=== PATIENT | male | born 1995 | race Two or more races ===

== ENCOUNTER 2017-09-19 06:27 | Emergency (ER) | payer OTHER ==
[~2017-09-19] VITALS: Ht 177.8 cm; Wt 68.0 kg
[2017-09-19 06:30] VITALS: BP 146/102
--- NOTE | 2017-09-19 06:53 | NUR ---
DR. DIXON AT [facility] FOR EVAL.
[2017-09-19] MEDS ORDERED: OLANZAPINE 5 MG TABLET ONE (06:57)
[2017-09-19] MEDS ORDERED: OLANZAPINE 5 MG TABLET PO ONE (07:00)
== END 2017-09-19 07:02 | disposition home or self-care (01) ==
LOC: ER 06:30
DX: F31.9 Bipolar disorder, unspecified (principal); Z76.0 Encounter for issue of repeat prescription; F22 Delusional disorders; Z88.2 Allergy status to sulfonamides
CPT/HCPCS: A4606; Z7610

== ENCOUNTER 2018-08-19 09:33 | Emergency (ER) | payer OTHER ==
[~2018-08-19] VITALS: Ht 177.8 cm; Wt 77.6 kg
--- NOTE | 2018-08-19 09:48 | NUR ---
LUATIONPT BROUGHT IN BY PARAMEDICS FOR HALLUCINATIONS AND HEARING VOICES NOT SI STATES HE USES DRUGS AND WANTS DRUG TREATMENT. PT ABLE TO WALK PENDING MD ALLRED
--- NOTE | 2018-08-19 11:13 | NUR ---
PT EVALUATED BY OPHTHALMIC ASST OBTAINING TAP CARD WILL DISCHARGE AFTER
--- NOTE | 2018-08-19 11:42 | NUR ---
JEVON received a call from principal secretary Chitra requesting for SW eval for homelessness and drug abuse. Pt. is a 22 year old male who was brought in by rescue ambulance for auditory hallucinations. JEVON met with pt. bedside. Pt. is alert and oriented x 4. Pt. is soft spoken. Pt. takes a long pause before answering any questions. Pt. states he is homeless and has been homeless for a while. Pt. states he has been living on the streets. Pt. has no emergency contact. Pt. has a history of methamphetamine use and last used yesterday. Pt. denies alcohol and cigarette use. SW encouraged pt. to attend a drug rehabilitation program for his drug use. Pt. also has a psychiatric diagnosis of Schizophrenia. Pt. is currently denying having auditory and visual hallucinations. Pt. denies suicidal and homicidal ideations as well. Pt. receives food stamps but not GR. JEVON explained to pt. about the [place] [facility] [phone] and gave him the list along with [facility] Homeless Resource Directory. The following resources were provided to the pt: Mental Health clinics [facility] Homeless Program [address] [place], [place] [id number] Homeless mentally ill people may be seen at [facility] on a walk-in basis. [facility] [address] [facility], 2nd [place] [address] Main Number: Adult Full Service Partnership (AFSP): Contact [facility] [address] [place] [address] [place] [address] Operation Hours: MON - FRI 8:00 a.m. - 5:00 p.m. Walk In Hours: MON - FRI 8:00 a.m. - 5:00 p.m. Services by Age: Adults and Older Adults Healthcare Clinics for Homeless patients [facility] [address] [facility], [address] [place]. [place] Hours: M, T, Th, F 8:30AM-4:30PM Walk-ins allowed Provide medical screening and pharmacy [facility] [address] [facility] [address] [place] [address] Hours M-F 8AM-3:30PM Walk-ins allowed Provide medical screening and pharmacy [facility] [address] [place] [address] Hours 8AM-4:30PM Walk-ins allowed Provide medical screening and pharmacy Alcohol and Drug Treatment Programs [facility] Substance Abuse Self-helpline ([facility]) Contact number . Call the hotline and the concrete products machine operator will screen and link individual to an appropriate program. Must have Medi-ab or be Med-ab eligible. [facility] [address] [facility]. [place] [address] [facility] [address] [facility]. [place] [phone] [facility] Rehabilitation Program (Episcopalian based) [address] [facility]. [place] [phone] (Six months program and need to work for 8 hrs per day while in treatment) [facility] (No insurance required) [address] [place] [address] Homeless Patient Waiver Form was signed by the pt. and pt. was provided with a TAP card per his request. No other social service needs are requested at this time. SW is available, if needed. Dr. Dill and HONEY Mabry have been updated with pt's discharge plan.
--- NOTE | 2018-08-19 11:53 | NUR ---
PT DISCHARGED TO COMMUNITY WILL F/U WITH DRUG REHAB GIVEN HOMELESS RESOURCES ANF TAP CARD. ACI GIVEN WELL
[2018-08-19 12:03] VITALS: BP 127/76
== END 2018-08-19 12:04 | disposition home or self-care (01) ==
LOC: ER 09:35
DX: F20.9 Schizophrenia, unspecified (principal); F19.10 Other psychoactive substance abuse, uncomplicated; F22 Delusional disorders; Z88.2 Allergy status to sulfonamides
CPT/HCPCS: 99283; A4606

== ENCOUNTER 2019-06-07 20:09 | Emergency (ER) | payer MEDICAID, OTHER ==
[~2019-06-07] VITALS: Ht 177.8 cm; Wt 72.6 kg
[2019-06-07 20:15] VITALS: BP 125/80
--- NOTE | 2019-06-07 20:23 | NUR ---
URINE COLLECTED AND SENT TO LAB
--- NOTE | 2019-06-07 20:25 | NUR ---
ATTEMPTED TO BRING PATIENT INTO ROOM. PT STATES "I NEED A MINUTE"
--- NOTE | 2019-06-07 20:30 | NUR ---
PT BIBSELF C/O AUDITORY HALLUCINATIONS. PT STATES THE VOICES ARE LOUD, THREATENING TO HURT HIM. PT DENIES SI,HI, OR DRUG USE AT THIS TIME. PT APPEARS PARANOID. PT STATES HE HAS BEEN OFF PSYCH MEDICATIONS "FOR A COUPLE OF DAYS", PT UNCLEAR OF NAMES OF MEDICATIONS. PT AAOX4. CALM AND COOPERATIVE. RESPIRATIONS EVEN AND UNLABORED. SKIN WARM AND INTACT. NO ACUTE DISTRESS NOTED AT THIS TIME. SITTER AT BEDSIDE. WILL CONTINUE TO MONITOR
--- NOTE | 2019-06-07 20:32 | NUR ---
PT AMBULATORY TO ER BED 14. BELONGINGS COLLECTED AND PLACED IN PATIENT LOCKER. PT PLACED IN GOWN. SITTER AT BEDSIDE.
--- NOTE | 2019-06-07 20:41 | NUR ---
TOMB MAKER HELPER AT BEDSIDE FOR BLOOD DRAW
[2019-06-07 20:49] LABS: BASOPHILS # (AUTO) 0.1 /CMM (0.0-0.2); BASOPHILS % (AUTO) 1.2 % (0.0-2.0); EOSINOPHILS % (AUTO) 5.2 % (0.0-6.0); HEMATOCRIT 44 % (39-51); HEMOGLOBIN 14.7 g/dL (13.5-17.5); LYMPHOCYTES # (AUTO) 3.3 /CMM (0.8-4.8); LYMPHOCYTES % (AUTO) 40.4 % (20.0-44.0); MEAN CORPUSCULAR HGB CONC 34 g/dl (31.0-36.0); MEAN CORPUSCULAR VOLUME 91 fL (80-96); MONOCYTES # (AUTO) 0.8 /CMM (0.1-1.30); MONOCYTES % (AUTO) 9.4 % (2.0-12.0); NEUTROPHILS # (AUTO) 3.6 /CMM (1.8-8.9); NEUTROPHILS % (AUTO) 43.8 % (43.0-81.0); PLATELET COUNT (AUTO) 287 /CMM (150-450); RED BLOOD CELL COUNT(AUTO) 4.82 MIL/uL (4.5-6.0); WHITE BLOOD COUNT (AUTO) 8.1 K/uL (4.3-11.0)
[2019-06-07 20:58] LABS: APPEARANCE,URINE CLEAR (CLEAR); BILIRUBIN,URINE NEGATIVE (NEGATIVE); BLOOD, URINE NEGATIVE Ery/uL (NEGATIVE); COLOR,URINE YELLOW (YELLOW); KETONES,URINE NEGATIVE (NEGATIVE); LEUKOCYTE ESTERASE ,URINE NEGATIVE (NEGATIVE); NITRITE, URINE NEGATIVE (NEGATIVE); PROTEIN,URINE NEGATIVE (NEGATIVE); UGLUCOSE NEGATIVE (NEGATIVE); UROBILINOGEN,URINE 0.2 EU/dL (0.2)
[2019-06-07 21:03] LABS: CALCIUM, SERUM 9.4 mg/dL (8.5-10.1); CARBON DIOXIDE 28 mmol/L (21-32); CHLORIDE 103 mmol/L (98-107); GLUCOSE 90 mg/dL (74-106); SODIUM SERUM 141 mmol/L (136-145); UREA NITROGEN, BLOOD 21 mg/dL (7-18)
[2019-06-07 21:07] LABS: ALANINE AMINOTRANSFERASE 82 U/L (12-78); ALCOHOL, BLOOD < 3 mg/dL (0-0); ALKALINE PHOSPHATASE 89 U/L (46-116); ASPARTATE AMINOTRANSFERASE 37 U/L (15-37); BILIRUBIN,DIRECT 0.2 mg/dL (0.0-0.2); SALICYLATE 0.7 mg/dL (2.8-20.0); TOTAL PROTEIN, SERUM 8.2 g/dL (6.4-8.2)
[2019-06-07 21:08] LABS: ACETAMINOPHEN 0 ug/ml (10-30)
[2019-06-07] MEDS ORDERED: QUETIAPINE FUMARATE 25 MG TABLET PO STA (21:10)
[2019-06-07] MEDS ORDERED: QUETIAPINE FUMARATE 100 MG TABLET PO STA (21:17)
[2019-06-07] MEDS ORDERED: QUETIAPINE FUMARATE 25 MG TABLET ONE (21:18)
--- NOTE | 2019-06-07 21:24 | NUR ---
PATIENT STATES THAT HE NO LONGER WISHES TO STAY IN ER. PATIENT DENIES SI/HI. DR GARRETT AWARE. PT ELOPED FROM EMERGENCY ROOM
== END 2019-06-07 21:33 | disposition left against medical advice (07) ==
LOC: ER 20:16
DX: R44.0 Auditory hallucinations (principal); F12.10 Cannabis abuse, uncomplicated; Z88.2 Allergy status to sulfonamides
CPT/HCPCS: 36415; 80048; 80076; 80305; 80307; 80329; 81001; 85025; 99284; G0480; 81000-TC

== ENCOUNTER 2019-06-07 23:56 | Emergency (ER) | payer MEDICAID ==
[~2019-06-07] VITALS: Ht 177.8 cm; Wt 72.6 kg
--- NOTE | 2019-06-08 00:10 | NUR ---
PT BIBSELF C/O SI WITH PLAN TO CUT WRISTS. PT AAOX4. CALM AND COOPERATIVE. VITAL SIGNS STABLE. RESPIRATIONS EVEN AND UNLABORED. AMBULATORY WITH STEADY GAIT. SKIN INTACT. NO ACUTE DISTRESS NOTED AT THIS TIME. WILL CONTINUE TO MONITOR
--- NOTE | 2019-06-08 00:12 | NUR ---
URINE COLLECTED AND SENT TO LAB
--- NOTE | 2019-06-08 00:13 | NUR ---
SUICIDE PRECAUTIONS INITIATED. BELONGINGS COLLECTED AND PLACED IN PATIENT LOCKER. PT PLACED IN GOWN. SITTER AT BEDSIDE. PT CALM AND COOPERATIVE. WILL CONTINUE TO MONITOR.
--- NOTE | 2019-06-08 00:22 | NUR ---
INSTRUMENT AND CONTROL TECHNICIAN AT BEDSIDE FOR BLOOD DRAW
[2019-06-08 00:26] LABS: APPEARANCE,URINE Clear (CLEAR); BILIRUBIN,URINE Negative (NEGATIVE); BLOOD, URINE Negative Ery/uL (NEGATIVE); COLOR,URINE Yellow (YELLOW); KETONES,URINE Trace (NEGATIVE); LEUKOCYTE ESTERASE ,URINE Negative (NEGATIVE); NITRITE, URINE Negative (NEGATIVE); PROTEIN,URINE Negative (NEGATIVE); UGLUCOSE Negative (NEGATIVE); UROBILINOGEN,URINE 0.2 EU/dL (0.2)
[2019-06-08 00:27] LABS: BASOPHILS # (AUTO) 0.1 /CMM (0.0-0.2); BASOPHILS % (AUTO) 1.7 % (0.0-2.0); EOSINOPHILS % (AUTO) 3.8 % (0.0-6.0); HEMATOCRIT 45 % (39-51); HEMOGLOBIN 15.1 g/dL (13.5-17.5); LYMPHOCYTES # (AUTO) 3.2 /CMM (0.8-4.8); LYMPHOCYTES % (AUTO) 36.3 % (20.0-44.0); MEAN CORPUSCULAR HGB CONC 34 g/dl (31.0-36.0); MEAN CORPUSCULAR VOLUME 91 fL (80-96); MONOCYTES # (AUTO) 0.9 /CMM (0.1-1.30); MONOCYTES % (AUTO) 10.8 % (2.0-12.0); NEUTROPHILS # (AUTO) 4.1 /CMM (1.8-8.9); NEUTROPHILS % (AUTO) 47.4 % (43.0-81.0); PLATELET COUNT (AUTO) 280 /CMM (150-450); RED BLOOD CELL COUNT(AUTO) 4.92 MIL/uL (4.5-6.0); WHITE BLOOD COUNT (AUTO) 8.7 K/uL (4.3-11.0)
[2019-06-08 00:34] LABS: CALCIUM, SERUM 9.6 mg/dL (8.5-10.1); CARBON DIOXIDE 30 mmol/L (21-32); CHLORIDE 102 mmol/L (98-107); GLUCOSE 85 mg/dL (74-106); POTASSIUM 3.6 mmol/L (3.5-5.1); SODIUM SERUM 139 mmol/L (136-145); UREA NITROGEN, BLOOD 21 mg/dL (7-18)
[2019-06-08 00:39] LABS: ALANINE AMINOTRANSFERASE 85 U/L (12-78); ALCOHOL, BLOOD < 3 mg/dL (0-0); ALKALINE PHOSPHATASE 85 U/L (46-116); ASPARTATE AMINOTRANSFERASE 39 U/L (15-37); BILIRUBIN,DIRECT 0.2 mg/dL (0.0-0.2); BILIRUBIN,TOTAL 1.3 mg/dL (0.2-1.0); TOTAL PROTEIN, SERUM 8.3 g/dL (6.4-8.2)
[2019-06-08 03:07] LABS: SALICYLATE 1.2 mg/dL (2.8-20.0)
--- NOTE | 2019-06-08 05:44 | NUR ---
Pt accepted to [facility] by Dr Toribio. # for report [phone]
--- NOTE | 2019-06-08 05:47 | NUR ---
[facility] called for transport. ETA 0620. Trip# [id number].
--- NOTE | 2019-06-08 05:58 | NUR ---
Report given to TRACEY rn for continuation of care.
[2019-06-08 06:41] VITALS: BP 126/78
--- NOTE | 2019-06-08 06:42 | NUR ---
GAVE REPORT AMBULNZ 107 FOR TRANSPORTATION DAVID
== END 2019-06-08 06:42 | disposition short-term general hospital (02) ==
LOC: ER 23:58
DX: R45.851 Suicidal ideations (principal); F15.10 Other stimulant abuse, uncomplicated; Z88.2 Allergy status to sulfonamides
CPT/HCPCS: 36415; 80048; 80076; 80305; 80307; 80329; 81001; 85025; 99285; G0480; 81000-TC

== ENCOUNTER 2019-06-23 22:00 | Emergency (ER) | payer MEDICAID ==
[~2019-06-23] VITALS: Ht 177.8 cm; Wt 68.0 kg
--- NOTE | 2019-06-23 23:08 | NUR ---
BIBSELF C/O +SI +HI "FEELING SUICIDAL AND HEARING PLAN TO CUT SELF AND TO CUT OTHERS. PT AOX4 RR EVEN AND UNLABORED. NO SOB NOTED. NO NVD AT THIS TIME. PT PLACED IN GOWN, PT PLACED ON SAFETY PRECAUTION. PT PERSONAL BELONGINGS COLLECTED AND PLACED IN LOCKER, SECURITY AT BEDSIDE FOR WANDING.
[2019-06-23] MEDS ORDERED: LORAZEPAM INJ 2 MG/ML VIAL IVP ONE (23:30)
[2019-06-23] MEDS ORDERED: ESCITALOPRAM OXALATE (10 MG) 10 MG TABLET PO ONE (23:30)
[2019-06-23 23:33] LABS: BASOPHILS # (AUTO) 0.1 /CMM (0.0-0.2); BASOPHILS % (AUTO) 0.6 % (0.0-2.0); EOSINOPHILS % (AUTO) 1.4 % (0.0-6.0); HEMATOCRIT 43 % (39-51); HEMOGLOBIN 14.7 g/dL (13.5-17.5); LYMPHOCYTES # (AUTO) 3.1 /CMM (0.8-4.8); LYMPHOCYTES % (AUTO) 35.4 % (20.0-44.0); MEAN CORPUSCULAR HGB CONC 34 g/dl (31.0-36.0); MEAN CORPUSCULAR VOLUME 90 fL (80-96); MONOCYTES # (AUTO) 0.6 /CMM (0.1-1.30); MONOCYTES % (AUTO) 6.5 % (2.0-12.0); NEUTROPHILS # (AUTO) 4.9 /CMM (1.8-8.9); NEUTROPHILS % (AUTO) 56.1 % (43.0-81.0); PLATELET COUNT (AUTO) 296 /CMM (150-450); RED BLOOD CELL COUNT(AUTO) 4.84 MIL/uL (4.5-6.0); WHITE BLOOD COUNT (AUTO) 8.8 K/uL (4.3-11.0)
[2019-06-23 23:43] LABS: CARBON DIOXIDE 31 mmol/L (21-32); CHLORIDE 103 mmol/L (98-107); CREATININE 0.9 mg/dL (0.6-1.3); GLUCOSE 90 mg/dL (74-106); POTASSIUM 3.5 mmol/L (3.5-5.1); SODIUM SERUM 140 mmol/L (136-145); UREA NITROGEN, BLOOD 15 mg/dL (7-18)
[2019-06-23 23:57] LABS: ALANINE AMINOTRANSFERASE 30 U/L (12-78); ALBUMIN 3.5 g/dL (3.4-5.0); ALKALINE PHOSPHATASE 84 U/L (46-116); ASPARTATE AMINOTRANSFERASE 21 U/L (15-37); BILIRUBIN,DIRECT 0.1 mg/dL (0.0-0.2); BILIRUBIN,TOTAL 0.3 mg/dL (0.2-1.0); SALICYLATE 3.1 mg/dL (2.8-20.0); TOTAL PROTEIN, SERUM 8.3 g/dL (6.4-8.2)
[2019-06-23 23:58] LABS: ACETAMINOPHEN 0 ug/ml (10-30); ALCOHOL, BLOOD < 3 mg/dL (0-0)
[2019-06-23 23:58] LABS: APPEARANCE,URINE Clear (CLEAR); BILIRUBIN,URINE Negative (NEGATIVE); BLOOD, URINE Negative Ery/uL (NEGATIVE); COLOR,URINE Light yellow (YELLOW); KETONES,URINE Negative (NEGATIVE); LEUKOCYTE ESTERASE ,URINE Negative (NEGATIVE); NITRITE, URINE Negative (NEGATIVE); PROTEIN,URINE Negative (NEGATIVE); UGLUCOSE Negative (NEGATIVE); UROBILINOGEN,URINE 0.2 EU/dL (0.2)
[2019-06-24] MEDS ORDERED: ESCITALOPRAM OXALATE (10 MG) 10 MG TABLET ONE ×2 (00:10→00:13)
[2019-06-24] MEDS ORDERED: QUETIAPINE FUMARATE 100 MG TABLET ONE (00:10)
[2019-06-24] MEDS ORDERED: LORAZEPAM 1 MG TABLET ONE (00:13)
[2019-06-24] MEDS: QUETIAPINE FUMARATE 100 MG TABLET PO SCH ×2 (00:17→06:52)
[2019-06-24] MEDS ORDERED: LORAZEPAM 1 MG TABLET PO ONE (00:30)
--- NOTE | 2019-06-24 02:39 | NUR ---
PT [facility] BY [facility] NEWSOME, UNIT 1. # FOR REPORT [phone].
--- NOTE | 2019-06-24 02:43 | NUR ---
[facility] CALLED FOR TRANSPORT ETA 0330 . TRIP#[id number]
--- NOTE | 2019-06-24 02:54 | NUR ---
REPORT GIVEN TO [facility].
[2019-06-24] MEDS ORDERED: OLANZAPINE 10 MG VIAL IM ONE ×2 (03:26→03:30)
--- NOTE | 2019-06-24 04:00 | NUR ---
CALL BACK FROM SOCAL INTAKE. PT NO LONGER ACCEPTED AT [facility]
--- NOTE | 2019-06-24 08:47 | NUR ---
jacki dupree called. eta [phone].
--- NOTE | 2019-06-24 10:05 | NUR ---
Patient given written and verbal discharge instructions. Patient verbalizes understanding of instructions. Patient is ambulatory with steady gait. Refuses offer of [facility] placement. Patient given list of available shelters in surrounding area.
--- NOTE | 2019-06-24 10:05 | NUR ---
Patient discharged to home in stable condition. Written and verbal after care instructions given. Patient verbalizes understanding of instruction.
[2019-06-24 10:06] VITALS: BP 138/88
== END 2019-06-24 10:07 | disposition home or self-care (01) ==
LOC: ER 22:05
DX: R45.851 Suicidal ideations (principal); F15.10 Other stimulant abuse, uncomplicated; R44.0 Auditory hallucinations; Z88.2 Allergy status to sulfonamides
CPT/HCPCS: 36415; 80048; 80076; 80305; 80307; 80329; 81001; 85025; 96372; 99284; G0480; J3490; 81000-TC

== ENCOUNTER 2020-01-31 21:06 | Emergency (ER) | payer MEDICAID, OTHER ==
[~2020-01-31] VITALS: Ht 177.8 cm; Wt 68.0 kg
--- NOTE | 2020-01-31 21:30 | NUR ---
BIBRa 878 for hearing voices, SI and plan to hang himself. pt alert and responsive. admitted using drogs and drinkung alcohol. pt ambulatory to bed 15. gowned up and all belongings taken away. SI precaution implemented. under close supervision of a sitter . will cont to monitor ,
[2020-01-31 21:50] LABS: BASOPHILS # (AUTO) 0.1 /CMM (0.0-0.2); BASOPHILS % (AUTO) 0.9 % (0.0-2.0); EOSINOPHILS % (AUTO) 5.7 % (0.0-6.0); HEMATOCRIT 38 % (39-51); HEMOGLOBIN 12.8 g/dL (13.5-17.5); LYMPHOCYTES # (AUTO) 2.9 /CMM (0.8-4.8); LYMPHOCYTES % (AUTO) 43.4 % (20.0-44.0); MEAN CORPUSCULAR HGB CONC 34 g/dl (31.0-36.0); MEAN CORPUSCULAR VOLUME 87 fL (80-96); NEUTROPHILS # (AUTO) 2.3 /CMM (1.8-8.9); PLATELET COUNT (AUTO) 277 /CMM (150-450); RED BLOOD CELL COUNT(AUTO) 4.38 MIL/uL (4.5-6.0); WHITE BLOOD COUNT (AUTO) 6.7 K/uL (4.3-11.0)
[2020-01-31 21:59] LABS: CALCIUM, SERUM 9.1 mg/dL (8.5-10.1); CARBON DIOXIDE 27 mmol/L (21-32); CHLORIDE 101 mmol/L (98-107); CREATININE 1.1 mg/dL (0.6-1.3); GLUCOSE 106 mg/dL (74-106); POTASSIUM 3.9 mmol/L (3.5-5.1); SODIUM SERUM 136 mmol/L (136-145); UREA NITROGEN, BLOOD 24 mg/dL (7-18)
--- NOTE | 2020-01-31 22:00 | NUR ---
urine collected and sent to lab
[2020-01-31 22:04] LABS: APPEARANCE,URINE Clear (CLEAR); BILIRUBIN,URINE Negative (NEGATIVE); BLOOD, URINE Negative Ery/uL (NEGATIVE); COLOR,URINE Yellow (YELLOW); KETONES,URINE Trace (NEGATIVE); LEUKOCYTE ESTERASE ,URINE Negative (NEGATIVE); NITRITE, URINE Negative (NEGATIVE); PROTEIN,URINE Negative (NEGATIVE); UGLUCOSE Negative (NEGATIVE)
[2020-01-31 22:05] LABS: ALANINE AMINOTRANSFERASE 33 U/L (12-78); ALBUMIN 3.4 g/dL (3.4-5.0); ALCOHOL, BLOOD < 3 mg/dL (0-0); ALKALINE PHOSPHATASE 70 U/L (46-116); ASPARTATE AMINOTRANSFERASE 22 U/L (15-37); BILIRUBIN,DIRECT 0.3 mg/dL (0.0-0.2); BILIRUBIN,TOTAL 1.2 mg/dL (0.2-1.0); TOTAL PROTEIN, SERUM 7.8 g/dL (6.4-8.2)
[2020-01-31 22:06] LABS: ACETAMINOPHEN < 2 ug/ml (10-30); SALICYLATE 1.7 mg/dL (2.8-20.0)
[2020-01-31 22:07] LABS: BACTERIA,URINE Rare /HPF (None Seen); RBC,URINE NONE SEEN /HPF (0-2); SQUAMOUS EPITHELIAL CELL,UR Few /HPF (None Seen); WBC,URINE NONE SEEN /HPF (0-3)
[2020-01-31 23:10] LABS: EOSINOPHILS % (MANUAL) 7 % (0-4); LYMPHOCYTES % (MANUAL) 45 % (16-48); MONOCYTES % (MANUAL) 9 % (0-11.0); NEUTROPHILS % (MANUAL) 39 (42-76)
--- NOTE | 2020-02-01 01:54 | NUR ---
PT GOT ACCEPTED AT [facility]. GOING TO UNIT 2, RM 203D. ACCEPTING MD: DR SHRESTHA. REPORT TO [phone], [phone]
--- NOTE | 2020-02-01 02:07 | NUR ---
SPOKE TO KI AT [id number] TO ARRANGE TRANSPO. TRIP NO: [id number]. WILL GET A CALL BACK FOR ETA
--- NOTE | 2020-02-01 02:22 | NUR ---
ETA FOR [facility]: [phone]
[2020-02-01] MEDS ORDERED: GUAIFENESIN 300 MG/15 ML UDC ONE (02:38)
[2020-02-01] MEDS ORDERED: GUAIFENESIN 300 MG/15 ML UDC PO ONE (03:00)
--- NOTE | 2020-02-01 03:49 | NUR ---
REPORT GIVEN TO BONNIE AT [facility]
--- NOTE | 2020-02-01 04:38 | NUR ---
ETA 45MIN
--- NOTE | 2020-02-01 05:38 | NUR ---
CALLED FOR UPDATE. ETA IN 30 MINS "THEY'RE CLEANING THE AMBULANCE."
[2020-02-01 06:02] VITALS: BP 131/84
--- NOTE | 2020-02-01 06:34 | NUR ---
[facility] AT THE BED SIDE TO HOUSE OFFICER THE PT. REPORT GIVEN TO medical staff coordinator
--- NOTE | 2020-02-01 06:44 | NUR ---
PT WAS PICKED UP BY [facility] AND TRANSFERRED TO [facility] IN STABLE CONDITION. ALL BELONGINGS PICKED UP BY THE tower supervisor
== END 2020-02-01 06:48 ==
LOC: ER 21:06
DX: R45.851 Suicidal ideations (principal); R44.0 Auditory hallucinations; F15.10 Other stimulant abuse, uncomplicated; F12.10 Cannabis abuse, uncomplicated; D64.9 Anemia, unspecified; Z88.2 Allergy status to sulfonamides; Z59.0 Homelessness
CPT/HCPCS: 36415; 80048; 80076; 80305; 80307; 80329; 81001; 85025; 87426; 99285; G0480; 81000-TC

== ENCOUNTER 2020-04-14 19:19 | Emergency (ER) | payer OTHER ==
[2020-04-14] MEDS ORDERED: OLANZAPINE 5 MG TABLET PO ONE (19:30)
--- NOTE | 2020-04-14 19:40 | NUR ---
PT ELOPED THE ER WITH [employer] WITHOUT BEING TRIAGED.
--- NOTE | 2020-04-14 19:42 | NUR ---
MADE AWARE OF THE PT ELOPED.
[2020-04-14] MEDS ORDERED: OLANZAPINE 5 MG TABLET ONE (20:04)
== END 2020-04-14 19:50 | disposition left against medical advice (07) ==
LOC: ER 19:21
DX: Z53.21 Procedure and treatment not carried out due to patient leaving prior to being seen by health care provider (principal)
CPT/HCPCS: 36415

== ENCOUNTER 2020-07-23 17:25 | Emergency (ER) | payer OTHER ==
[~2020-07-23] VITALS: Ht 182.9 cm; Wt 68.0 kg
--- NOTE | 2020-07-23 17:46 | NUR ---
CAME IN FOR OVERDOSE ON METH. C/O SUICIDAL IDEATION OF RUNNING INTO TRAFFIC. ALSO C/O AUDITORY HALLUCINATIONS. NOTED TO HAVE FLIGHT OF IDEAS AND SPEAKING TO SELF. TO ER BED 10, BP CUFF AND POX. CHANGED TO HOSP GOWN, WARM BLANKET PROVIDED, PATIENT AAO, BREATHING EVEN AND UNLABORED, NAD NOTED. MARY MOURA AT BEDSIDE. SITTER AT BEDSIDE FOR SAFETY
[2020-07-23] MEDS ORDERED: LORAZEPAM INJ 2 MG/ML VIAL IVP ONE (18:00)
[2020-07-23] MEDS ORDERED: LORAZEPAM INJ 2 MG/ML VIAL ONE (18:03)
--- NOTE | 2020-07-23 18:09 | NUR ---
Note undone in EDM - 07/23/20 at 1909 by SHABBIR CAME IN FOR OVERDOSE ON METH. C/O SUICIDAL IDEATION OF RUNNING INTO TRAFFIC. ALSO C/O AUDITORY HALLUCINATIONS. NOTED TO HAVE FLIGHT OF IDEAS AND SPEAKING TO SELF. TO ER BED 10, BP CUFF AND POX. CHANGED TO HOSP GOWN, WARM BLANKET PROVIDED, PATIENT AAO, BREATHING EVEN AND UNLABORED, NAD NOTED. AWAITING MD CAMACHO. SITTER AT BEDSIDE FOR SAFETY
[2020-07-23 18:11] LABS: BASOPHILS % (AUTO) 0.5 % (0.0-2.0); EOSINOPHILS % (AUTO) 2.4 % (0.0-6.0); HEMATOCRIT 41 % (39-51); HEMOGLOBIN 13.6 g/dL (13.5-17.5); LYMPHOCYTES % (AUTO) 23.9 % (20.0-44.0); MEAN CORPUSCULAR HGB CONC 33 g/dl (31.0-36.0); MEAN CORPUSCULAR VOLUME 87 fL (80-96); MONOCYTES # (AUTO) 0.6 /CMM (0.1-1.30); MONOCYTES % (AUTO) 6.7 % (2.0-12.0); NEUTROPHILS # (AUTO) 5.5 /CMM (1.8-8.9); NEUTROPHILS % (AUTO) 66.5 % (43.0-81.0); PLATELET COUNT (AUTO) 305 /CMM (150-450); RED BLOOD CELL COUNT(AUTO) 4.69 MIL/uL (4.5-6.0); WHITE BLOOD COUNT (AUTO) 8.3 K/uL (4.3-11.0)
--- NOTE | 2020-07-23 18:22 | NUR ---
PATIENT NOT ABLE TO PROVIDE URINE SAMPLE AT THIS TIME. MADE AWARE
[2020-07-23 18:38] LABS: CALCIUM, SERUM 8.8 mg/dL (8.5-10.1); CARBON DIOXIDE 28 mmol/L (21-32); CHLORIDE 99 mmol/L (98-107); CREATININE 0.9 mg/dL (0.6-1.3); GLUCOSE 91 mg/dL (74-106); POTASSIUM 3.4 mmol/L (3.5-5.1); SODIUM SERUM 136 mmol/L (136-145); UREA NITROGEN, BLOOD 17 mg/dL (7-18)
[2020-07-23 18:41] LABS: ALANINE AMINOTRANSFERASE 28 U/L (12-78); ALBUMIN 3.7 g/dL (3.4-5.0); ALCOHOL, BLOOD < 3 mg/dL (0-0); ALKALINE PHOSPHATASE 106 U/L (46-116); ASPARTATE AMINOTRANSFERASE 18 U/L (15-37); BILIRUBIN,DIRECT 0.1 mg/dL (0.0-0.2); BILIRUBIN,TOTAL 0.3 mg/dL (0.2-1.0); TOTAL PROTEIN, SERUM 8.6 g/dL (6.4-8.2)
[2020-07-23 18:42] LABS: ACETAMINOPHEN < 2 ug/ml (10-30)
--- NOTE | 2020-07-23 18:47 | NUR ---
PATIENT PULLED OUT IV PERIPHERAL LINE. APPLIED PRESSURE. NO BLEEDING NOTED
--- NOTE | 2020-07-23 18:49 | NUR ---
covid antigen collected sent to lab
--- NOTE | 2020-07-23 19:03 | NUR ---
URINE SAMPLE COLLECTED AND SENT TO LAB
[2020-07-23 19:14] LABS: BILIRUBIN,URINE Negative (NEGATIVE); COLOR,URINE YELLOW (YELLOW); LEUKOCYTE ESTERASE ,URINE Negative (NEGATIVE); NITRITE, URINE Negative (NEGATIVE); PH,URINE 6.5 (5.0-8.0); PROTEIN,URINE Negative (NEGATIVE); UGLUCOSE Negative (NEGATIVE); UROBILINOGEN,URINE 0.2 EU/dL (0.2)
[2020-07-23 19:25] LABS: BACTERIA,URINE Rare /HPF (None Seen); SQUAMOUS EPITHELIAL CELL,UR Few /HPF (None Seen); WBC,URINE NONE SEEN /HPF (0-3)
--- NOTE | 2020-07-23 19:35 | NUR ---
LAB CALLED REGARDING NEGATIVE COVID RESULT.
--- NOTE | 2020-07-23 19:43 | NUR ---
Patient discharged to home in stable condition. Written and verbal after care instructions given. Patient verbalizes understanding of instruction.
[2020-07-23 19:44] VITALS: BP 139/70
== END 2020-07-23 19:44 | disposition home or self-care (01) ==
LOC: ER 17:30
DX: F20.9 Schizophrenia, unspecified (principal); Z91.14 Patient's other noncompliance with medication regimen; F15.10 Other stimulant abuse, uncomplicated; Z76.0 Encounter for issue of repeat prescription; Z59.0 Homelessness; Z20.822 Contact with and (suspected) exposure to COVID-19; Z88.2 Allergy status to sulfonamides; F12.10 Cannabis abuse, uncomplicated
CPT/HCPCS: 36415; 80048; 80076; 80299; 80307; 80320; 81001; 85025; 87426; 96374; 99284; C9803; J2060; G0480

== ENCOUNTER 2020-07-24 12:12 | Emergency (ER) | payer OTHER ==
[~2020-07-24] VITALS: Ht 167.6 cm; Wt 65.8 kg
[2020-07-24 12:23] VITALS: BP 154/20
--- NOTE | 2020-07-24 12:35 | NUR ---
CALLED TO ROOM IN,NO ANSWER, SECURITY SAID HE STEPPED OUT.
--- NOTE | 2020-07-24 12:50 | NUR ---
CALLED, NO ANSWER
--- NOTE | 2020-07-24 13:30 | NUR ---
CALLED TO ROOM IN,NO ANSWER
--- NOTE | 2020-07-24 13:52 | NUR ---
CALLED AGAIN TO ROOM IN,NO ANSWER
--- NOTE | 2020-07-24 14:25 | NUR ---
JEVON was notified by ED RN Gener patient presented to [facility] ED for suicidal ideations. Patient is a 24 year-old male. JEVON unable to assess the patient as he was not in [facility] facility. JEVON remains available for all needs regarding this patient.
== END 2020-07-24 18:08 | disposition left against medical advice (07) ==
LOC: ER 12:20
DX: R45.851 Suicidal ideations (principal); Z88.2 Allergy status to sulfonamides; Z59.0 Homelessness; Z53.21 Procedure and treatment not carried out due to patient leaving prior to being seen by health care provider

== ENCOUNTER 2020-11-14 09:40 | Emergency (ER) | payer OTHER ==
[~2020-11-14] VITALS: Ht 180.3 cm; Wt 76.2 kg
[2020-11-14 09:40] VITALS: BP 140/68
--- NOTE | 2020-11-14 09:42 | NUR ---
BIB RA 88 AMBULATORY ASKING TO SEE A BOOM CRANE OPERATOR AND DOCTOR, DR KOLB INTRODUCED HIMSELF BUT HE TOLD THE DOCTOR THAT HE WOULD LIKE TO GO TO THE WAITING ROOM INSTEAD TO DECIDE WHAT KIND OF HELP HE WANTED.
--- NOTE | 2020-11-14 10:00 | NUR ---
called to room in, no answer. patient left at 0955 per admitting
--- NOTE | 2020-11-14 10:05 | NUR ---
SS consult requested for homelessness & mental health resources. The pt. is a 25 year old Black male. SW attempted to meet with pt. in waiting room. However, pt. was not found and had already departed.
== END 2020-11-14 10:05 | disposition left against medical advice (07) ==
LOC: ER 09:49
DX: F41.9 Anxiety disorder, unspecified (principal); F20.9 Schizophrenia, unspecified; Z88.2 Allergy status to sulfonamides; Z60.2 Problems related to living alone; Z59.0 Homelessness

== ENCOUNTER 2021-01-18 19:04 | Emergency (ER) | payer OTHER ==
[~2021-01-18] VITALS: Ht 185.4 cm; Wt 77.1 kg
--- NOTE | 2021-01-18 19:22 | NUR ---
The patient is bibra88, from street, anxious after using meth. The patient is alert and oriented to self. In room air and denies SOB. Respiraiton regular and unlabored. Denies pain. Will continue to monitor the patient.
[2021-01-18] MEDS ORDERED: IV NS 0.9% 1,000 ML BAG IV ONE (20:30)
[2021-01-18] MEDS ORDERED: LORAZEPAM INJ 2 MG/ML VIAL IV ONE (20:30)
[2021-01-18] MEDS ORDERED: LORAZEPAM INJ 2 MG/ML VIAL ONE ×2 (20:41→21:52)
[2021-01-18] MEDS ORDERED: OLANZAPINE 5 MG TABLET PO ONE (21:00)
[2021-01-18] MEDS ORDERED: OLANZAPINE 5 MG TABLET ONE (21:08)
[2021-01-18 21:24] LABS: BILIRUBIN,URINE NEGATIVE (NEGATIVE); COLOR,URINE YELLOW (YELLOW); LEUKOCYTE ESTERASE ,URINE NEGATIVE (NEGATIVE); NITRITE, URINE NEGATIVE (NEGATIVE); PROTEIN,URINE NEGATIVE (NEGATIVE); UGLUCOSE NEGATIVE (NEGATIVE); UROBILINOGEN,URINE 0.2 EU/dL (0.2)
[2021-01-18] MEDS ORDERED: LORAZEPAM INJ 2 MG/ML VIAL IM ONE (22:00)
--- NOTE | 2021-01-18 22:21 | NUR ---
BLOOD COLLECTED AND SENT TO LAB.
[2021-01-18 22:34] LABS: BASOPHILS # (AUTO) 0.1 K/uL (0.0-0.2); BASOPHILS % (AUTO) 0.7 % (0.0-2.0); EOSINOPHILS % (AUTO) 1.9 % (0.0-6.0); HEMATOCRIT 38 % (39-51); HEMOGLOBIN 12.6 g/dL (13.5-17.5); LYMPHOCYTES # (AUTO) 2.4 K/uL (0.8-4.8); LYMPHOCYTES % (AUTO) 26.2 % (20.0-44.0); MEAN CORPUSCULAR HGB CONC 34 g/dl (31.0-36.0); MEAN CORPUSCULAR VOLUME 88 fL (80-96); MONOCYTES # (AUTO) 0.7 K/uL (0.1-1.30); MONOCYTES % (AUTO) 7.3 % (2.0-12.0); NEUTROPHILS # (AUTO) 5.8 K/uL (1.8-8.9); NEUTROPHILS % (AUTO) 63.9 % (43.0-81.0); PLATELET COUNT (AUTO) 292 K/uL (150-450); RED BLOOD CELL COUNT(AUTO) 4.29 MIL/uL (4.5-6.0); WHITE BLOOD COUNT (AUTO) 9.1 K/uL (4.3-11.0)
[2021-01-18 22:44] LABS: CALCIUM, SERUM 8.4 mg/dL (8.5-10.1); CARBON DIOXIDE 24 mmol/L (21-32); CHLORIDE 104 mmol/L (98-107); CREATININE 0.9 mg/dL (0.6-1.3); GLUCOSE 92 mg/dL (74-106); POTASSIUM 3.6 mmol/L (3.5-5.1); SODIUM SERUM 137 mmol/L (136-145); UREA NITROGEN, BLOOD 15 mg/dL (7-18)
[2021-01-18 22:50] LABS: ALANINE AMINOTRANSFERASE 54 U/L (12-78); ALBUMIN 3.7 g/dL (3.4-5.0); ALCOHOL, BLOOD < 3 mg/dL (0-0); ALKALINE PHOSPHATASE 115 U/L (46-116); ASPARTATE AMINOTRANSFERASE 25 U/L (15-37); BILIRUBIN,DIRECT 0.1 mg/dL (0.0-0.2); BILIRUBIN,TOTAL 0.4 mg/dL (0.2-1.0); TOTAL PROTEIN, SERUM 7.8 g/dL (6.4-8.2)
[2021-01-18 22:53] LABS: ACETAMINOPHEN < 0 ug/ml (10-30)
--- NOTE | 2021-01-18 23:04 | NUR ---
PATIENT STATES, "I FEEL MUCH BETTER".
--- NOTE | 2021-01-18 23:12 | NUR ---
Patient is ambulatory with a steady gait. Patient discharged to home in stable condition. Written and verbal after care instructions given. Patient verbalizes understanding of instruction.
[2021-01-19 01:45] VITALS: BP 122/76
== END 2021-01-18 23:12 | disposition home or self-care (01) ==
LOC: ER 19:08
DX: F15.10 Other stimulant abuse, uncomplicated (principal); F29 Unspecified psychosis not due to a substance or known physiological condition; Z59.0 Homelessness; Z20.822 Contact with and (suspected) exposure to COVID-19; Z88.2 Allergy status to sulfonamides; F12.10 Cannabis abuse, uncomplicated; R00.0 Tachycardia, unspecified
CPT/HCPCS: 36415; 80048; 80076; 80143; 80307; 80320; 81003; 84484; 85025; 87426; 93005; 96372; 99284; C9803; J2060; G0480; J7030

== ENCOUNTER 2021-03-19 02:39 | Emergency (ER) | payer OTHER ==
[~2021-03-19] VITALS: Ht 177.8 cm; Wt 68.0 kg
--- NOTE | 2021-03-19 03:15 | NUR ---
pt ambulanted to restroom, needs met
--- NOTE | 2021-03-19 03:26 | NUR ---
pt bibself c/o si with plan to cut himself and auditory hallucinations. Pt aaox4 breathing evenly and unlabored. Belongings taken and placed in locker, pt changed into gown. Sitter at bedside. Pt attached to monitor and pox.
[2021-03-19 03:30] LABS: BASOPHILS # (AUTO) 0.1 K/uL (0.0-0.2); BASOPHILS % (AUTO) 0.8 % (0.0-2.0); EOSINOPHILS % (AUTO) 2.6 % (0.0-6.0); HEMATOCRIT 40 % (39-51); HEMOGLOBIN 13.4 g/dL (13.5-17.5); LYMPHOCYTES # (AUTO) 4.6 K/uL (0.8-4.8); MEAN CORPUSCULAR HGB CONC 33 g/dl (31.0-36.0); MEAN CORPUSCULAR VOLUME 87 fL (80-96); MONOCYTES % (AUTO) 9.5 % (2.0-12.0); NEUTROPHILS # (AUTO) 4.9 K/uL (1.8-8.9); NEUTROPHILS % (AUTO) 45.1 % (43.0-81.0); PLATELET COUNT (AUTO) 339 K/uL (150-450); RED BLOOD CELL COUNT(AUTO) 4.64 MIL/uL (4.5-6.0); WHITE BLOOD COUNT (AUTO) 10.9 K/uL (4.3-11.0)
[2021-03-19 03:48] LABS: ALANINE AMINOTRANSFERASE 97 U/L (12-78); ALKALINE PHOSPHATASE 76 U/L (46-116); ASPARTATE AMINOTRANSFERASE 47 U/L (15-37); BILIRUBIN,DIRECT 0.2 mg/dL (0.0-0.2); BILIRUBIN,TOTAL 1.1 mg/dL (0.2-1.0); CARBON DIOXIDE 26 mmol/L (21-32); CHLORIDE 99 mmol/L (98-107); CREATININE 0.8 mg/dL (0.6-1.3); GLUCOSE 87 mg/dL (74-106); POTASSIUM 3.8 mmol/L (3.5-5.1); SODIUM SERUM 136 mmol/L (136-145); TOTAL PROTEIN, SERUM 8.6 g/dL (6.4-8.2); UREA NITROGEN, BLOOD 19 mg/dL (7-18)
[2021-03-19 03:51] LABS: ACETAMINOPHEN 0 ug/ml (10-30); ALCOHOL, BLOOD < 3 mg/dL (0-0)
[2021-03-19] MEDS ORDERED: OLANZAPINE 5 MG TABLET PO ONE (04:00)
[2021-03-19] MEDS ORDERED: OLANZAPINE 5 MG TABLET ONE (04:09)
[2021-03-19 04:14] LABS: BILIRUBIN,URINE Negative (NEGATIVE); COLOR,URINE LIGHT YELLOW (YELLOW); LEUKOCYTE ESTERASE ,URINE Negative (NEGATIVE); NITRITE, URINE Negative (NEGATIVE); PH,URINE 6.5 (5.0-8.0); PROTEIN,URINE Negative (NEGATIVE); UGLUCOSE Negative (NEGATIVE); UROBILINOGEN,URINE 0.2 EU/dL (0.2)
--- NOTE | 2021-03-19 04:25 | NUR ---
Patient is resting comfortably in bed with eyes closed. Easily aroused. VSS
[2021-03-19] MEDS ORDERED: LORAZEPAM 1 MG TABLET PO ONE (05:30)
--- NOTE | 2021-03-19 06:50 | NUR ---
covid swab sent to lab
[2021-03-19 08:39] VITALS: BP 127/68
--- NOTE | 2021-03-19 10:20 | NUR ---
SS consult SS consult requested for suicidal ideation and homelessness. Patient is a 25-year-old, male. SW met with patient at his bedside in the emergency department. Patient was alert and oriented x4. Patient presented with a depressed mood and anxious affect. Patient was malodorous and inappropriately dressed. Per chart, patient presented to the hospital on 03/19/21 with complaints of suicidal ideation with a plan to cut himself and auditory hallucinations. Patient is currently homeless and reported that he has been sleeping on the street for "a long time." Patient reported that he has no source of income at this time. SW asked the patient if he has access to social support and patient reported that he has no social support. SW asked the patient about his hx of substance use and patient reported hx of alcohol use, stating that he drinks "a lot but it's been a while." Per toxicology report, patient is positive for amphetamine use. SW assessed patient's history of mental illness and patient reported hx of Schizophrenia. Patient stated that he has not been taking his psychotropic medication regularly and has access to his Rx when he is admitted at psychiatric hospitals. Patient reported current auditory hallucinations and stated, "I don't know how to explain, I just hear things." Patient reported current suicidal ideation with a plan to cut himself. Patient denies homicidal ideation. SW offered the patient homeless, substance use and outpatient mental health resources. Patient accepted the resources and thanked SW. Patient signed the homeless waiver and SW filed waiver in the patient's chart. Patient requested voluntary psychiatric admission. JEVON will fax clinicals to [facility], , for review. PLAN: Per patient's request for voluntary psychiatric admission, JEVON will fax clinicals to [facility], for review. SS will remain available as needed. RESOURCES: Year-round shelters: [facility] [address] [place] [address] ; [facility] [address] [place] [address]; [facility] [id number] [facility]. [facility] [address] SPA 4 | [facility] Provider: First to Serve Address: [address] [place] [address] # of Beds: 48 Population Served: [facility] Provider: First to Serve Address: [address] [facility], [address] # of Beds: 73 Population Served: [facility] 6 | [facility] Provider: Home at Last Address: [address] [facility], [address] # of Beds: 63 Population Served: [facility] 3 | [facility] Provider: [facility] [place] Address: [address] [facility], [address] # of Beds: 75 Population Served: [facility] 8 | [facility] Provider: [facility] [place] Address: [address] [facility] [address] # of Beds: 80 Population Served: [facility] 1 | [facility] Provider: [facility] [place] Address: [address] [place] [address], [address] # of Beds: 85 Population Served: [facility] 2 | [facility] Provider: [facility] Address: Confidential (please call for location) # of Beds: 52 Population Served: [facility] 4 | [facility] Provider: [facility] Address: [address] [facility], [address] # of Beds: 49 Population Served: [facility] Provider: First To Serve Address: [address] [facility], [address] # of Beds: 27 Population Served: [facility] Hygiene: [employer]: [address] [address] ; [facility] [address] [facility] Liu [facility] ; [facility] [address] . Food Resources: [place] [employer] [facility] at [facility]- [address] [place]; Meet Each Need with Dignity ([facility]) [address] [facility]. [place]; [facility] Food Pantry [address] [facility]; [facility] [address] [facility] [place]. Mental Health resources provided: [facility] [address] [place] [address] ; [facility] [address] [facility] [address], [place], [place] [phone] ; [facility] [address] [facility] [place], [place] [phone] ; [facility] [place], [place] [address] Healthcare Clinics: [facility] [address] [facility], [address] [place]. [place] ; [facility] [address] [place] [address]; [facility] [address] [facility]. [place] [address] [phone] Counseling--Outpatient [facility] [address], [address] [place], [place] [address] (Specializes in in-depth psychotherapy for emotional distress: anxiety, depression, interpersonal conflicts, life transitions, childhood abuse) PSYCHIATRIC OUTPATIENT SERVICES [facility] Partial Hospitalization and Intensive Outpatient Program (Managed Care and [place] Only) [address] [facility] [id number] [facility] Partial Hospitalization and Outpatient Program [address] [place] [address] [facility] Partial Hospitalization and Outpatient Program [address] [place], [place] [phone] VAN YS [facility] Mental Health [facility] [address] [facility] [facility] [place], [place] [phone] [facility] Partial Hospitalization and Outpatient Program [address] [address] [facility], [place] [phone] Substance use resources provided included: [facility] Substance Abuse Self-Helpline (SAS) ; [facility] [address] [facility]. [place] [address] ; [facility] [address] [facility] [address] ; [facility] [address] [facility] [address] ; [facility] [address] [facility] [address] ; [facility] [address] [facility] [phone] ; [facility] [place]; [facility] [place]; [place]; Alcoholics Anonymous -SFV
--- NOTE | 2021-03-19 10:26 | NUR ---
MISHA note JEVON faxed clinicals to [facility], , for review.
--- NOTE | 2021-03-19 10:38 | NUR ---
CALLED [facility] AND SPOKE TO DARRELL, AT THIS TIME STILL WAITING FOR CENTRAL PROCESSING TECHNICIAN TO REVIEW CLINICALS AND WILL CALL US BACK WHEN THEY HAVE ACCEPTANCE INFO.
--- NOTE | 2021-03-19 10:50 | NUR ---
ACCEPTED AT [facility]. SEND AFTER [phone]
--- NOTE | 2021-03-19 12:48 | NUR ---
CALLED [facility] FOR TRANSPORT TO [facility]. ETA [phone].
--- NOTE | 2021-03-19 15:35 | NUR ---
TRANSPORTED IN STABLE CONDITION.
== END 2021-03-19 15:37 ==
LOC: ER 02:39
DX: F29 Unspecified psychosis not due to a substance or known physiological condition (principal); R45.851 Suicidal ideations; I10 Essential (primary) hypertension; Z82.49 Family history of ischemic heart disease and other diseases of the circulatory system; Z59.0 Homelessness; F15.10 Other stimulant abuse, uncomplicated; F12.10 Cannabis abuse, uncomplicated; Z88.2 Allergy status to sulfonamides; R94.31 Abnormal electrocardiogram [ECG] [EKG]
CPT/HCPCS: 36415; 80048; 80076; 80143; 80307; 80320; 81003; 84484; 85025; 87426; 93005; 99285; C9803; G0480

== ENCOUNTER 2021-09-12 23:01 | Emergency (ER) | payer OTHER ==
[~2021-09-12] VITALS: Ht 175.3 cm; Wt 72.6 kg
[2021-09-13 01:14] LABS: BASOPHILS % (AUTO) 0.5 % (0.0-2.0); EOSINOPHILS % (AUTO) 2.5 % (0.0-6.0); HEMATOCRIT 39 % (39-51); HEMOGLOBIN 13.1 g/dL (13.5-17.5); LYMPHOCYTES % (AUTO) 33.9 % (20.0-44.0); MEAN CORPUSCULAR HGB CONC 33 g/dl (31.0-36.0); MEAN CORPUSCULAR VOLUME 88 fL (80-96); MONOCYTES # (AUTO) 0.9 K/uL (0.1-1.30); MONOCYTES % (AUTO) 10.1 % (2.0-12.0); NEUTROPHILS # (AUTO) 4.7 K/uL (1.8-8.9); PLATELET COUNT (AUTO) 281 K/uL (150-450); RED BLOOD CELL COUNT(AUTO) 4.45 MIL/uL (4.5-6.0); WHITE BLOOD COUNT (AUTO) 8.9 K/uL (4.3-11.0)
[2021-09-13 01:24] LABS: CALCIUM, SERUM 8.5 mg/dL (8.5-10.1); CARBON DIOXIDE 27 mmol/L (21-32); CHLORIDE 103 mmol/L (98-107); CREATININE 0.9 mg/dL (0.6-1.3); GLUCOSE 73 mg/dL (74-106); POTASSIUM 3.7 mmol/L (3.5-5.1); SODIUM SERUM 137 mmol/L (136-145); UREA NITROGEN, BLOOD 15 mg/dL (7-18)
[2021-09-13 01:30] LABS: ALANINE AMINOTRANSFERASE 48 U/L (12-78); ALBUMIN 3.3 g/dL (3.4-5.0); ALCOHOL, BLOOD < 3 mg/dL (0-0); ALKALINE PHOSPHATASE 85 U/L (46-116); ASPARTATE AMINOTRANSFERASE 23 U/L (15-37); BILIRUBIN,DIRECT 0.1 mg/dL (0.0-0.2); BILIRUBIN,TOTAL 0.3 mg/dL (0.2-1.0); TOTAL PROTEIN, SERUM 7.8 g/dL (6.4-8.2)
[2021-09-13 01:31] LABS: ACETAMINOPHEN 0 ug/ml (10-30)
--- NOTE | 2021-09-13 03:26 | NUR ---
URINE COLLECTED AND SENT TO LAB
[2021-09-13 03:28] LABS: BILIRUBIN,URINE NEGATIVE (NEGATIVE); COLOR,URINE YELLOW (YELLOW); LEUKOCYTE ESTERASE ,URINE NEGATIVE (NEGATIVE); NITRITE, URINE NEGATIVE (NEGATIVE); PH,URINE 6.5 (5.0-8.0); PROTEIN,URINE NEGATIVE (NEGATIVE); UGLUCOSE NEGATIVE (NEGATIVE); UROBILINOGEN,URINE 0.2 EU/dL (0.2)
[2021-09-13] MEDS ORDERED: OLANZAPINE 5 MG TABLET ONE (05:46)
[2021-09-13] MEDS ORDERED: OLANZAPINE 5 MG TABLET PO ONE (06:00)
[2021-09-13 07:30] VITALS: BP 132/76
--- NOTE | 2021-09-13 07:30 | NUR ---
ASSUME PATIENT CARE, RESTING IN BED. HERE FOR SUICIDAL IDEATION AND WANTS TO BE VOLUNTARILY ADMITTED AT [facility]. VERBALLY RESPONSIVE. DENIES SI. SEEN AND EVALUATED BY ERMD PROVIDER. WILL CONTINUE TO MONITOR.
--- NOTE | 2021-09-13 10:01 | NUR ---
PT ACCEPTED TO [facility] UNDER DR. GONZALEZ PER TYRA, PLEASE CALL [phone] FOR REPORT.
--- NOTE | 2021-09-13 10:05 | NUR ---
[facility] CALLED FOR TRANSPORT ETA 30 MNS.
--- NOTE | 2021-09-13 10:33 | NUR ---
REPORT GIVEN TO EMT FOR PT TRANSFER TO [facility].
== END 2021-09-13 10:44 ==
LOC: ER 23:12
DX: R45.851 Suicidal ideations (principal); F15.10 Other stimulant abuse, uncomplicated
CPT/HCPCS: 36415; 80048; 80076; 80143; 80307; 80320; 81003; 85025; 87426; 99285; C9803; G0480